=== PATIENT | male | born 1960 | race Caucasian/White ===

== ENCOUNTER 2017-03-17 21:19 | Inpatient (IN) | payer MEDICAID, OTHER ==
[~2017-03-17] VITALS: Ht 177.8 cm; Wt 82.1 kg
[~2017-03-17 21:19] MED LIST: ASPI-605 PO; CARV12.52 PO; CLOP75TA2 PO; D5W IV SCH; ISOS30TA6 PO; MILRINONE LACTATE IV SCH
--- NOTE | 2017-03-17 21:20 | NUR ---
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 and currently on milrinone IVPB YULIA PICC for recent bilateral leg sx for occluded arteries at [facility]. AOx4, afebrile, diaphoretic, facial grimacing w/ resp even & unlabored, denies sob, htn, SR w/ multiple PVC on continuous pulse-ox w/ cardiac monitoring. 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
--- NOTE | 2017-03-17 21:35 | NUR ---
EKG at bedside. Labs drawn & sent.
[2017-03-17 21:42] LABS: BASOPHILS # (AUTO) 0.1 /CMM (0.0-0.2); BASOPHILS % (AUTO) 0.7 % (0.0-2.0); EOSINOPHILS # (AUTO) 0.2 /CMM (0.0-0.7); EOSINOPHILS % (AUTO) 2.4 % (0.0-6.0); HEMATOCRIT 30 % (39-51); HEMOGLOBIN 10.3 g/dL (13.5-17.5); LYMPHOCYTES # (AUTO) 2.2 /CMM (0.8-4.8); LYMPHOCYTES % (AUTO) 28.8 % (20.0-44.0); MEAN CORPUSCULAR HEMOGLOBIN 29 PG (26.0-33.0); MEAN CORPUSCULAR HGB CONC 34 g/dl (31.0-36.0); MEAN CORPUSCULAR VOLUME 84 fL (80-96); MONOCYTES # (AUTO) 0.7 /CMM (0.1-1.30); MONOCYTES % (AUTO) 9.4 % (2.0-12.0); NEUTROPHILS # (AUTO) 4.6 /CMM (1.8-8.9); NEUTROPHILS % (AUTO) 58.7 % (43.0-81.0); PLATELET COUNT (AUTO) 359 /CMM (150-450); RDW COEFFICIENT OF VARIATION 14.9 (11.5-15.0); RED BLOOD CELL COUNT(AUTO) 3.63 MIL/uL (4.5-6.0); WHITE BLOOD COUNT (AUTO) 7.8 K/uL (4.3-11.0)
--- NOTE | 2017-03-17 21:47 | NUR ---
CXR at bedside.
[2017-03-17 21:53] LABS: CALCIUM, SERUM 9.4 mg/dL (8.5-10.1); CARBON DIOXIDE 29 mmol/L (21-32); CHLORIDE 96 mmol/L (98-107); CREATININE 1.1 mg/dL (0.6-1.3); GLUCOSE 269 mg/dL (74-106); POTASSIUM 3.3 mmol/L (3.5-5.1); SODIUM SERUM 134 mmol/L (136-145); UREA NITROGEN, BLOOD 27 mg/dL (7-18)
[2017-03-17] MEDS ORDERED: ONDANSETRON HCL/PF 4 MG/2 ML VIAL ONE ×2 (21:54→22:11)
[2017-03-17 21:55] LABS: PROTHROMBIN TIME 10.4 SECS (9.5-12.7)
[2017-03-17] MEDS ORDERED: MORPHINE SULFATE INJ 10 MG/ML DISP.SYRIN ONE ×2 (21:55→23:27)
[2017-03-17] MEDS ORDERED: ONDANSETRON HCL/PF 4 MG/2 ML VIAL IV ONE (22:00)
[2017-03-17] MEDS ORDERED: MORPHINE SULFATE INJ 2 MG/ML DISP.SYRIN IV ONE ×2 (22:00→23:30)
[2017-03-17 22:01] LABS: TROPONIN I < 0.017 ng/mL (0.00-0.056)
--- NOTE | 2017-03-17 22:04 | NUR ---
pt medicated as ordered for continued midsternal cp, on continuous cardiac monitoring.
[2017-03-17] MEDS ORDERED: IOHEXOL-350 100 ML VIAL IV ONE (22:21)
[2017-03-17] MEDS ORDERED: IV NS 0.9% 250 ML IV ONE (22:21)
[2017-03-17] MEDS ORDERED: CT SWABBABLE VALVE TRANS SET 1 EA INFUS.SET MC ONE (22:21)
--- NOTE | 2017-03-17 22:38 | NUR ---
pt sent to [place] via [facility].
--- NOTE | 2017-03-17 23:53 | NUR ---
Incoming call fr pt daughter, Alfreda [phone], per pt request, update pt daughter on pt status. Instruct pt daughter to bring list of home medications.
--- NOTE | 2017-03-17 23:56 | NUR ---
Carlos DIRECTOR ORACLE at bedside for further eval.
[2017-03-18] VITALS (17 sets, daily range): BP systolic 116–158; BP diastolic 46–82
[2017-03-18] MEDS ORDERED: MORPHINE SULFATE INJ 2 MG/ML DISP.SYRIN IV PRN (00:30)
[2017-03-18] MEDS ORDERED: ACETAMINOPHEN 325 MG TABLET PO PRN (00:30)
[2017-03-18] MEDS ORDERED: MISCELLANEOUS MED 1 EA EA XX ONE (00:30)
[2017-03-18] MEDS ORDERED: HYDROCODONE/APAP 5/325MG 1 EACH TABLET PO PRN (00:30)
[2017-03-18] MEDS ORDERED: ONDANSETRON HCL/PF 4 MG/2 ML VIAL IVP PRN (00:30)
[2017-03-18] MEDS ORDERED: POTASSIUM CHLORIDE 20 MEQ TAB.PRT.SR PO ONE ×2 (00:30→00:49)
[2017-03-18] MEDS ORDERED: MAGNESIUM HYDROXIDE 30 ML UDC PO PRN (00:30)
[2017-03-18] MEDS ORDERED: MAG HYDROX/AL HYDROX/SIMETH 30 ML UDC PO PRN (00:30)
[2017-03-18] MEDS ORDERED: ZOLPIDEM TARTRATE 5 MG TABLET PO PRN (00:30)
[2017-03-18] MEDS ORDERED: ZOLPIDEM TARTRATE 10 MG TABLET ONE (00:42)
[2017-03-18] MEDS ORDERED: DEXTROSE 50%-WATER 50 ML DISP.SYRIN IV PRN (01:00)
--- NOTE | 2017-03-18 01:24 | NUR ---
pt resting comfortably in bed w/ resp even & unlabored, on continuous pulse-ox w/ cardiac monitoring. Awaiting admission ICU.
--- NOTE | 2017-03-18 02:41 | NUR ---
pt continues to rest in bed w/ resp even & unlabored, nad noted.
[2017-03-18] MEDS ORDERED: MORPHINE SULFATE INJ 10 MG/ML DISP.SYRIN ONE ×2 (02:58→03:55)
--- NOTE | 2017-03-18 03:05 | NUR ---
pt awake, pulling off pulse-ox, c/o lt side cp, requesting for pain medication. Medicated as ordered for cp, on continuous cardiac monitoring.
[2017-03-18] MEDS ORDERED: ONDANSETRON HCL/PF 4 MG/2 ML VIAL ONE (03:12)
--- NOTE | 2017-03-18 03:56 | NUR ---
pt continues to have lt sided cp, unrelieved w/ medication, restless, sitting up in bed, pulling off monitoring equipment, requesting for more pain medication. Carlos Nguyen NP called, per verbal order received, stat EKG and give Morphine 4mg IVPx1 now. Pt placed back on cardiac monitoring and medicated as ordered.
--- NOTE | 2017-03-18 04:15 | NUR ---
STAT EKG DONE IN ER, CHARGE NURSE LUIS MANUEL NOTIFIED
[2017-03-18] MEDS ORDERED: MORPHINE SULFATE INJ 4 MG/ML DISP.SYRIN IV ONE (04:30)
--- NOTE | 2017-03-18 04:30 | NUR ---
pt report lt cp partially relieved w/ pain medication, placed on 2 l/min O2 via NC, on continuous pulse-ox w/ cardiac monitoring.
--- NOTE | 2017-03-18 05:20 | NUR ---
pt resting comfortably in bed w/ resp even & unlabored, nad noted. On continuous monitoring.
--- NOTE | 2017-03-18 06:48 | NUR ---
pt awake, lying in bed w/ resp even & unlabored, denies any cp at this time w/ nad noted. pt removed O2 and pulse-ox, on continuous cardiac monitoring.
--- NOTE | 2017-03-18 07:23 | NUR ---
Report given to ARMEN Green for RASHEED, pt admission to ICU 255.
[2017-03-18 07:27] LABS: BASOPHILS # (AUTO) 0.1 /CMM (0.0-0.2); BASOPHILS % (AUTO) 0.8 % (0.0-2.0); EOSINOPHILS # (AUTO) 0.3 /CMM (0.0-0.7); EOSINOPHILS % (AUTO) 4.7 % (0.0-6.0); HEMATOCRIT 30 % (39-51); HEMOGLOBIN 10.3 g/dL (13.5-17.5); LYMPHOCYTES # (AUTO) 2.3 /CMM (0.8-4.8); LYMPHOCYTES % (AUTO) 33.9 % (20.0-44.0); MEAN CORPUSCULAR HEMOGLOBIN 29 PG (26.0-33.0); MEAN CORPUSCULAR HGB CONC 34 g/dl (31.0-36.0); MEAN CORPUSCULAR VOLUME 84 fL (80-96); MONOCYTES # (AUTO) 0.7 /CMM (0.1-1.30); MONOCYTES % (AUTO) 10.7 % (2.0-12.0); NEUTROPHILS # (AUTO) 3.4 /CMM (1.8-8.9); NEUTROPHILS % (AUTO) 49.9 % (43.0-81.0); PLATELET COUNT (AUTO) 334 /CMM (150-450); RDW COEFFICIENT OF VARIATION 15.4 (11.5-15.0); RED BLOOD CELL COUNT(AUTO) 3.57 MIL/uL (4.5-6.0); WHITE BLOOD COUNT (AUTO) 6.8 K/uL (4.3-11.0)
--- NOTE | 2017-03-18 07:30 | NUR ---
ICU/RN: RECEIVED REPORT FROM FERRYBOAT HELPER ZORA. PT BROUGHT TO ROOM 255 VIA GURNEY. PT ALERT, AWAKE, ORIENTED, FOLLOWS COMMANDS. PT ON NASAL CANULA, NO ACUTE DISTRESS NOTED, EVEN AND UNLABORED RESPIRATIONS. PT ON TELE, SINUS. PACEMAKER IN PLACE, DUAL CHAMBER. RIGHT UPPER ARM PICC LINE IN PLACE, NO S/S OF INFECTION OR INFILTRATION NOTED. PT ON CONTINUOUS MILRINONE DRIP 0.25 MCG/KILO/MINUTE WHICH HE CAME HERE WITH FROM HOME. WILL BRING REST OF HIS HOME MEDICATIONS TO COMPLETE MED RECON. SKIN INTACT, PT ABLE TO AMBULATE WITH CANE, INSTRUCTED TO STAY IN BED AND CALL FOR HELP WHEN NEEDED. ALL NEEDS WILL BE MET, SAFETY MEASURES TAKEN, BED IN LOW POSITION, SIDE RAILS UP, CALL LIGHT WITHIN REACH.
[2017-03-18 07:49] LABS: CALCIUM, SERUM 9.2 mg/dL (8.5-10.1); CREATININE 0.8 mg/dL (0.6-1.3); MAGNESIUM 1.9 mg/dL (1.8-2.4); PHOSPHORUS 3.7 mg/dL (2.5-4.9); POTASSIUM 3.6 mmol/L (3.5-5.1); TROPONIN I 0.018 ng/mL (0.00-0.056)
[2017-03-18 07:52] LABS: THYROID STIMULATING HORMONE 2.855 uIU/mL (0.358-3.74)
[2017-03-18] MEDS: BLOOD SUGAR DIAGNOSTIC 1 EACH STRIP IN SCH ×4 (07:52→21:11)
[2017-03-18] MEDS: CLOPIDOGREL BISULFATE 75 MG TABLET PO SCH (08:57)
[2017-03-18] MEDS: ASPIRIN 81 MG TAB.CHEW PO SCH (08:57)
[2017-03-18] MEDS: ENOXAPARIN SODIUM 40 MG/0.4 ML DISP.SYRIN SQ SCH (08:57)
[2017-03-18] MEDS: INSULIN REGULAR, HUMAN 100 UNIT/ML 3 ML VIAL SQ PRN ×4 (08:58→21:14)
[2017-03-18] MEDS ORDERED: RANO500T3 PO (09:52)
[2017-03-18] MEDS ORDERED: INSU100V27 SQ (09:52)
[2017-03-18] MEDS ORDERED: INSU3INS6 SQ (09:52)
[2017-03-18] MEDS ORDERED: BUME1TAB4 PO (09:52)
[2017-03-18] MEDS ORDERED: VALS80TA2 PO (09:52)
[2017-03-18] MEDS ORDERED: SENN8.6T6 PO (09:52)
[2017-03-18] MEDS ORDERED: ROSU20TA PO (09:52)
[2017-03-18] MEDS ORDERED: CYAN10009 PO (09:52)
[2017-03-18] MEDS ORDERED: ISOS120T9 PO (09:52)
[2017-03-18] MEDS ORDERED: TAMS0.4C34 PO (09:52)
[2017-03-18] MEDS ORDERED: FERR-58 PO (09:52)
[2017-03-18] MEDS ORDERED: DULO30CA51 PO (09:52)
[2017-03-18] MEDS ORDERED: LIDO700A TP (09:52)
[2017-03-18] MEDS ORDERED: MAGN400T6 PO (09:52)
[2017-03-18] MEDS ORDERED: GABA-536 PO (09:52)
[2017-03-18] MEDS ORDERED: DOCU-170 PO (09:52)
[2017-03-18] MEDS ORDERED: ONDA4TAB11 PO (09:52)
[2017-03-18] MEDS ORDERED: CARV25TA2 PO (09:52)
[2017-03-18] MEDS ORDERED: MILRINONE IV PRN (10:30)
--- NOTE | 2017-03-18 10:30 | NUR ---
ICU/RN: PER TRADING SPECIALIST REPORT AND PER PT AWAITING FOR OR DAUGHTER OF PATIENT TO COME TO BRING ALL HOME MEDICATIONS AND TO GIVE US MORE PRECISE HISTORY REGARDING PT. PT IS HAVING HARD TIME REMEMBERING 'S PHONE NUMBER, NUMBER ON FACE SHEET IS NOT WORKING. WILL REATTEMPT TO CALL OR WAIT FOR THEM TO COME AND VISIT HIM.
--- NOTE | 2017-03-18 15:00 | NUR ---
ICU/RN MD ROUNDS PT SEEN AND ASSESSED BY . PT ASSESSED, CHART REVIEWED. INFORMED HER WE ARE WAITING FOR FAMILY TO BRING REPORTS. ECHO DONE, INFORMED MD OF TROPONIN TRENDS. EKG UNREMARKABLE.
--- NOTE | 2017-03-18 18:08 | NUR ---
ICU/RN: TRIED CALLING AGAIN WITH NUMBER PROVIDED BY PT, WRONG NUMBER
--- NOTE | 2017-03-18 18:52 | NUR ---
ICU/RN ENDING NOTES,AM REPORT WILL BE ENDORSED TO NIGHT NURSE FOR CONTINUATION OF CARE. ALL NEEDS MET. SAFETY MEASURES TAKEN. AWAITING FOR FAMILY TO COME AND BRING HOME MEDS AND PROVIDE ACCURATE HISTORY. BED IN LOW POSITION, SIDE RAILS UP, CALL LIGHT WITHIN REACH.
--- NOTE | 2017-03-18 20:38 | NUR ---
received pt from day shift, a/o x4, follows commands, SR, A pacing, occasional PVCs, receiving Primacor at 0.25mcg, on 2L 02 sat well, lungs clear, no edema, tolerates diet, urinates in urinal, v/s stable, no pain, pt turns and repositions by himself.
[2017-03-19] VITALS (12 sets, daily range): BP systolic 121–144; BP diastolic 33–75
--- NOTE | 2017-03-19 00:35 | NUR ---
pt is resting in the bed, v/s stable, no pain.
--- NOTE | 2017-03-19 04:51 | NUR ---
pt is resting in the bed, no acute distress overnight, v/s stable, no chest pain verbalized, pt cleaned and changed.
[2017-03-19 05:12] LABS: BASOPHILS # (AUTO) 0.1 /CMM (0.0-0.2); BASOPHILS % (AUTO) 0.8 % (0.0-2.0); EOSINOPHILS # (AUTO) 0.3 /CMM (0.0-0.7); EOSINOPHILS % (AUTO) 4.4 % (0.0-6.0); HEMATOCRIT 31 % (39-51); HEMOGLOBIN 10.4 g/dL (13.5-17.5); LYMPHOCYTES # (AUTO) 1.8 /CMM (0.8-4.8); LYMPHOCYTES % (AUTO) 27.2 % (20.0-44.0); MEAN CORPUSCULAR HEMOGLOBIN 29 PG (26.0-33.0); MEAN CORPUSCULAR HGB CONC 34 g/dl (31.0-36.0); MEAN CORPUSCULAR VOLUME 85 fL (80-96); MONOCYTES # (AUTO) 0.5 /CMM (0.1-1.30); NEUTROPHILS % (AUTO) 59.6 % (43.0-81.0); PLATELET COUNT (AUTO) 308 /CMM (150-450); RDW COEFFICIENT OF VARIATION 15.9 (11.5-15.0); WHITE BLOOD COUNT (AUTO) 6.8 K/uL (4.3-11.0)
[2017-03-19 05:35] LABS: TROPONIN I < 0.017 ng/mL (0.00-0.056)
[2017-03-19 05:39] LABS: ALANINE AMINOTRANSFERASE 30 U/L (12-78); ALBUMIN 3.2 g/dL (3.4-5.0); ALKALINE PHOSPHATASE 71 U/L (46-116); ASPARTATE AMINOTRANSFERASE 17 U/L (15-37); BILIRUBIN,TOTAL 0.3 mg/dL (0.2-1.0); CALCIUM, SERUM 9.5 mg/dL (8.5-10.1); CARBON DIOXIDE 30 mmol/L (21-32); CHLORIDE 101 mmol/L (98-107); CREATININE 0.8 mg/dL (0.6-1.3); GLUCOSE 149 mg/dL (74-106); PHOSPHORUS 4.1 mg/dL (2.5-4.9); POTASSIUM 3.7 mmol/L (3.5-5.1); SODIUM SERUM 138 mmol/L (136-145); TOTAL PROTEIN, SERUM 7.3 g/dL (6.4-8.2); UREA NITROGEN, BLOOD 17 mg/dL (7-18)
--- NOTE | 2017-03-19 07:30 | NUR ---
ICU/RN: MD ROUNDS; PT SEEN BY . PER MD HE IS STABLE TO BE DISCHARGED. INSTRUCTED TO FOLLOWUP WITH PRIMARY. AWAITING FOR INTERNAL MEDICINE TO PROCEED WITH THE DISCHARGE
--- NOTE | 2017-03-19 08:00 | NUR ---
ICU/RN INITIAL NOTES,AM RECEIVED REPORT FROM NIGHT NURSE. PT ALERT,AWAKE ORIENTED TO PERSON, PLACE AND TIME. PT ON ROOM AIR, NO DISTRESS, MAINTAINING 02 SAT >95%. NO CHEST PAIN OVER NIGHT AND NO CHEST PAIN AT THIS TIME. PICC LINE PRESENT, PATIENT CAME IN WITH IT, NO S/S OF INFECTION OR INFILTRATION NOTED. IV MILRINONE INFUSING ORDERED VIA PUMP PT CAME IN WITH. ALL NEEDS WILL BE MET, SAFETY MEASURES TAKEN, BED IN LOW POSITION, SIDE RIALS UP, CALL LIGHT WITHIN REACH.
[2017-03-19] MEDS: BLOOD SUGAR DIAGNOSTIC 1 EACH STRIP IN SCH (08:02)
[2017-03-19] MEDS: INSULIN REGULAR, HUMAN 100 UNIT/ML 3 ML VIAL SQ PRN (08:05)
[2017-03-19] MEDS: CLOPIDOGREL BISULFATE 75 MG TABLET PO SCH (08:06)
[2017-03-19] MEDS: ASPIRIN 81 MG TAB.CHEW PO SCH (08:06)
[2017-03-19] MEDS: ENOXAPARIN SODIUM 40 MG/0.4 ML DISP.SYRIN SQ SCH (08:06)
--- NOTE | 2017-03-19 09:20 | NUR ---
ICU/RN: FINALLY AFTER A LOT OF INVESTIGATION FOUND THE CONTACT OF AND DAUGHTER. ALEC DAUGHTER SAID SHE WILL BE IN TO VISIT SHORTLY.
--- NOTE | 2017-03-19 10:00 | NUR ---
ICU/RN: PT REFUSING ALL VITAL SIGNS, TAKING OFF AND PULLING OFF ALL LEADS AND BP CUFF.
--- NOTE | 2017-03-19 11:00 | NUR ---
ICU/RN: PT SEEN AND ASSESSED BY . DISCHARGE ORDERS RECEIVED. WILL FOLLOW THROUGH.
--- NOTE | 2017-03-19 11:43 | NUR ---
ICU/RN: DISCHARGE NOTE EXIT CARE AND DISCHARGE COMPLETED. SKIN INTACT, NO PHOTOS TAKEN. PT CAME IN WITH PICC LINE THEREFORE PER MD WE DISCHARGED WITH PICC LINE AND MILRINONE, IV MEDICATION. ALL BELONGINGS SENT HOME WITH PT, FORM SIGNED. DAUGHTER OF PT HERE TO TAKE HIM HOME. ALL FORMS AND RECORDS GIVEN TO PT. PT ESCORTED OUT TO VEHICLE.
== END 2017-03-19 11:30 | disposition home or self-care (01) | DRG 203 ==
LOC: ER 21:22 → TELE 22:53 → ICU 03-18 06:06
PROVIDERS: ADMIT Nurse Practitioner Acute Care; ATTEND Nurse Practitioner Acute Care
DX: M94.0 Chondrocostal junction syndrome [Tietze] (principal); I50.23 Acute on chronic systolic (congestive) heart failure; Z76.82 Awaiting organ transplant status; E11.51 Type 2 diabetes mellitus with diabetic peripheral angiopathy without gangrene; I25.10 Atherosclerotic heart disease of native coronary artery without angina pectoris; I11.0 Hypertensive heart disease with heart failure; I27.20 Pulmonary hypertension, unspecified; E78.5 Hyperlipidemia, unspecified; D64.9 Anemia, unspecified; E87.6 Hypokalemia; I25.5 Ischemic cardiomyopathy; Z86.73 Personal history of transient ischemic attack (TIA), and cerebral infarction without residual deficits; Z87.891 Personal history of nicotine dependence; Z95.5 Presence of coronary angioplasty implant and graft; Z95.810 Presence of automatic (implantable) cardiac defibrillator; Z79.4 Long term (current) use of insulin
CPT/HCPCS: 36415; 71010-TC; 80048-TC; 80053-TC; 80061-TC; 82728-TC; 82962-TC; 83540-TC; 83735-TC; 84100-TC; 84439-TC; 84443-TC; 84484-TC; 85025-TC; 85730-TC; 87081-TC; 93307-TC; A4606; J1650; J1815; J2260; J2270; J2405; J7050; J7060; Q9967; Z7610

== ENCOUNTER 2017-03-27 11:50 | Inpatient (IN) | payer MEDICAID, OTHER ==
[~2017-03-27] VITALS: Ht 167.6 cm; Wt 85.3 kg
[~2017-03-27 11:50] MED LIST changes: +BUME1TAB4 PO; -CARV12.52 PO; +CARV25TA2 PO; +CYAN10009 PO; -D5W IV SCH; +DOCU-170 PO; +DULO30CA51 PO; +FERR-58 PO; +GABA-536 PO; +INSU100V27 SQ; +INSU3INS6 SQ; +ISOS120T9 PO; -ISOS30TA6 PO; +LIDO700A TP; +MAGN400T6 PO; -MILRINONE LACTATE IV SCH; +ONDA4TAB11 PO; +RANO500T3 PO; +ROSU20TA PO; +SENN8.6T6 PO; +TAMS0.4C34 PO; +VALS80TA2 PO
--- NOTE | 2017-03-27 11:50 | NUR ---
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 PT'S RUE PICC LINE HAD COME OUT AND PT IS ON MILRINONE VIA IV FOR HIS HEART. PT IS ON THE MONITOR AND CONTINUOUS PULSE OX. PT IS PALE IN [place]. RESP ARE 24. DR. LAU IS AT THE BEDSIDE.
[2017-03-27] MEDS ORDERED: NITROGLYCERIN PACKET 1 GM PACKET TD ONE (12:00)
[2017-03-27] MEDS ORDERED: ASPIRIN 81 MG TAB.CHEW PO ONE (12:00)
--- NOTE | 2017-03-27 12:01 | NUR ---
CALLED NURSING SUP. FOR TELE BED
[2017-03-27 12:10] LABS: BASOPHILS % (AUTO) 0.3 % (0.0-2.0); EOSINOPHILS # (AUTO) 0.1 /CMM (0.0-0.7); EOSINOPHILS % (AUTO) 1.7 % (0.0-6.0); HEMATOCRIT 34 % (39-51); HEMOGLOBIN 11.5 g/dL (13.5-17.5); LYMPHOCYTES # (AUTO) 1.2 /CMM (0.8-4.8); LYMPHOCYTES % (AUTO) 15.7 % (20.0-44.0); MEAN CORPUSCULAR HEMOGLOBIN 29 PG (26.0-33.0); MEAN CORPUSCULAR HGB CONC 33 g/dl (31.0-36.0); MEAN CORPUSCULAR VOLUME 87 fL (80-96); MONOCYTES # (AUTO) 0.6 /CMM (0.1-1.30); MONOCYTES % (AUTO) 7.7 % (2.0-12.0); NEUTROPHILS # (AUTO) 5.5 /CMM (1.8-8.9); NEUTROPHILS % (AUTO) 74.6 % (43.0-81.0); PLATELET COUNT (AUTO) 189 /CMM (150-450); RDW COEFFICIENT OF VARIATION 15.9 (11.5-15.0); RED BLOOD CELL COUNT(AUTO) 3.95 MIL/uL (4.5-6.0); WHITE BLOOD COUNT (AUTO) 7.4 K/uL (4.3-11.0)
[2017-03-27] MEDS ORDERED: ASPIRIN 81 MG TAB.CHEW ONE (12:12)
[2017-03-27] MEDS ORDERED: NITROGLYCERIN PACKET 1 GM PACKET ONE (12:12)
[2017-03-27] MEDS ORDERED: UBID50TA3 PO (12:17)
[2017-03-27] MEDS ORDERED: ESCI10TA PO (12:17)
[2017-03-27 12:24] LABS: INR 0.95 (0.87-1.13); PROTHROMBIN TIME 9.9 SECS (9.5-12.7)
[2017-03-27 12:28] LABS: TROPONIN I < 0.017 ng/mL (0.00-0.056)
[2017-03-27 12:33] LABS: ALANINE AMINOTRANSFERASE 22 U/L (12-78); ALBUMIN 3.6 g/dL (3.4-5.0); ALKALINE PHOSPHATASE 84 U/L (46-116); ASPARTATE AMINOTRANSFERASE 16 U/L (15-37); B-TYPE NATRIURETIC PEPTIDE 1337 PG/ML (0-125); BILIRUBIN,DIRECT 0.1 mg/dL (0.0-0.2); BILIRUBIN,TOTAL 0.5 mg/dL (0.2-1.0); CALCIUM, SERUM 9.2 mg/dL (8.5-10.1); CARBON DIOXIDE 26 mmol/L (21-32); CHLORIDE 102 mmol/L (98-107); CREATININE 1.2 mg/dL (0.6-1.3); SODIUM SERUM 136 mmol/L (136-145); TOTAL PROTEIN, SERUM 7.8 g/dL (6.4-8.2); UREA NITROGEN, BLOOD 17 mg/dL (7-18)
[2017-03-27 12:36] LABS: GLUCOSE 476 mg/dL (74-106)
--- NOTE | 2017-03-27 12:44 | NUR ---
PT REC'D A CUP OF WATER.
--- NOTE | 2017-03-27 12:44 | NUR ---
PT'S ARRIVED AND IS AT THE BEDSIDE.
[2017-03-27] MEDS ORDERED: ONDANSETRON HCL/PF 4 MG/2 ML VIAL ONE (12:47)
[2017-03-27] MEDS ORDERED: MORPHINE SULFATE INJ 10 MG/ML DISP.SYRIN ONE (12:49)
[2017-03-27] MEDS ORDERED: MORPHINE SULFATE INJ 2 MG/ML DISP.SYRIN IV ONE (13:00)
[2017-03-27] MEDS ORDERED: ONDANSETRON HCL/PF 4 MG/2 ML VIAL IVP ONE (13:00)
--- NOTE | 2017-03-27 13:27 | NUR ---
ALLSION [phone] ()- WOLOF AND BURMESE SPEAKING.
--- NOTE | 2017-03-27 13:37 | NUR ---
PAGED DR GUZMAN
--- NOTE | 2017-03-27 13:44 | NUR ---
PT GOING TO TELE 306-1
--- NOTE | 2017-03-27 14:10 | NUR ---
REPORT GIVEN TO ARMEN RITTER
--- NOTE | 2017-03-27 14:20 | NUR ---
RN NOTES RECEIVED PATIENT FROM ER VIA GURNEY, ABLE TO WALK TO BED ASSISTED WITH BELONGINGS. RESPIRATIONS EVEN AND UNLABORED, ON RA OXYGEN SATURATION AT 99%. PATIENT COMPLAINS OF CHEST PAIN, DESCRIBED CONSTANT PRESSURE, PT GIVEN MORPHINE AND ASA AND NITRO PATCH WITH SLIGHT RELIEF. YULIA PICC LINE NOTED, PULLED OUT, DID NOT FLUSH PER MD NEEDS REINSERTION. R HAND IV SITE PATENT AND INTACT NO REDNESS OR INFILTRATION NOTED, REFUSED BODY CHECK STATES JUST WANTS TO REST, NURSING EDUCATION REINFORCED. ORIENTED TO ROOM AND UNIT, CALL LIGHT WITHIN EASY REACH WILL CONTINUE TO MONITOR
[2017-03-27] MEDS ORDERED: DEXTROSE 50%-WATER 50 ML DISP.SYRIN IV PRN (14:30)
[2017-03-27] MEDS ORDERED: *INSULIN REGULAR(HUMULIN R)HUM 100 UNIT/ML VIAL SQ PRN (14:30)
[2017-03-27] MEDS ORDERED: HYDROCODONE/APAP 5/325MG 1 EACH TABLET PO PRN (14:30)
[2017-03-27] MEDS ORDERED: ONDANSETRON HCL/PF 4 MG/2 ML VIAL IVP PRN (14:30)
[2017-03-27] MEDS ORDERED: MAG HYDROX/AL HYDROX/SIMETH 30 ML UDC PO PRN (14:30)
[2017-03-27] MEDS ORDERED: Z GUARD REMEDY 2 OZ OINT TP PRN (14:30)
[2017-03-27] MEDS ORDERED: ENOXAPARIN SODIUM 40 MG/0.4 ML DISP.SYRIN SQ SCH (14:30)
[2017-03-27] MEDS ORDERED: ONDANSETRON 4 MG TAB.RAPDIS PO PRN (14:30)
[2017-03-27] MEDS ORDERED: ACETAMINOPHEN 325 MG TABLET PO PRN (14:30)
[2017-03-27] MEDS ORDERED: MAGNESIUM HYDROXIDE 30 ML UDC PO PRN (14:30)
[2017-03-27] MEDS ORDERED: INSULIN REGULAR, HUMAN 100 UNIT/ML 3 ML VIAL SQ PRN (14:30)
[2017-03-27 14:45] VITALS: BP 134/75
--- NOTE | 2017-03-27 15:29 | NUR ---
RN NOTES SEEN AND EXAMINED BY DR. GUZMAN, NOTIFIED MD OF CONTINUOUS MILRINONE FROM HOME PT STATES HE IS ON THE LIST FOR HEART TRANSPLANT BUT UNABLE TO REPORT WHY, PT NOTED POOR HISTORIAN PER MD PT TO CONTINUE DRIP AND BE TRANSFERRED TO ICU AT THIS TIME
[2017-03-27 15:52] LABS: CHOLESTEROL 176 mg/dL (<200); HDL CHOLESTEROL 46 mg/dL (40-60); LDL 106 mg/dL (0-99); TRIGLYCERIDES 171 mg/dL (30-150)
--- NOTE | 2017-03-27 16:10 | NUR ---
RN NOTES PATIENT AWAITING BED FOR ICU TRANSFER, WILL CONTINUE TO MONITOR AT THIS TIME
--- NOTE | 2017-03-27 16:12 | NUR ---
RN NOTES PICC LINE REMOVED PER MD ORDERS,TOLERATED WELL NO ASE NOTED TO CONTINUE TO MONITOR PT TO HAVE PICC LINE REINSERTED
--- NOTE | 2017-03-27 16:14 | NUR ---
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
[2017-03-27] MEDS ORDERED: MORPHINE SULFATE INJ 2 MG/ML DISP.SYRIN IV PRN (16:30)
[2017-03-27] MEDS ORDERED: HYDROMORPHONE 1 MG/1 ML DISP.SYRIN IV PRN (16:30)
[2017-03-27] MEDS ORDERED: BUMETANIDE INJ 0.25 MG/ML VIAL IV SCH (16:30)
[2017-03-27] MEDS ORDERED: FERROUS SULFATE (325 MG) 325 MG/TAB TABLET PO SCH (17:00)
[2017-03-27] MEDS ORDERED: DOCUSATE SODIUM 100 MG CAPSULE PO SCH (17:00)
[2017-03-27] MEDS ORDERED: GABAPENTIN 400 MG CAPSULE PO SCH (17:00)
[2017-03-27] MEDS ORDERED: BUMETANIDE (1 MG) 1 MG TABLET PO SCH (17:00)
--- NOTE | 2017-03-27 17:05 | NUR ---
RN NOTES PATIENT STATING AT THIS TIME " I WANT TO GO HOME NOW, I WILL CALL MY SO SHE CAN TAKE ME" PATIENT ALERT AND ORIENTED AND ABLE TO MAKE NEEDS KNOWN, NAURUAN SPEAKING NURSE ASSISTED IN TRANSLATING PT IS TO SEE PRIMARY CARE PHYSICIAN SOON POSSIBLE WILL MAKE MD AWARE. PT WITH RESPIRATIONS EVEN AND UNLABORED, VS WNL NO DISTRESS NOTED, SIGNED AGAINST MEDICAL ADVICE PAPER WORK PATIENT INSISTED ON LEAVING TO WAIT FOR IN LOBBY, DISCHARGED AGAINST MEDICAL ADVICE
[2017-03-27] MEDS ORDERED: BLOOD SUGAR DIAGNOSTIC 1 EACH STRIP VI SCH (17:30)
[2017-03-27] MEDS ORDERED: NITROGLYCERIN 30 GM TUBE TP SCH (21:00)
[2017-03-27] MEDS ORDERED: NITROGLYCERIN PACKET 1 GM PACKET TOP SCH (21:00)
[2017-03-27] MEDS ORDERED: VALSARTAN 80 MG TABLET PO SCH (21:00)
[2017-03-27] MEDS ORDERED: ZOLPIDEM TARTRATE 5 MG TABLET PO PRN (22:00)
[2017-03-27] MEDS ORDERED: SENNOSIDES 8.6 MG TABLET PO SCH (22:00)
[2017-03-28] MEDS ORDERED: ESCITALOPRAM OXALATE (10 MG) 10 MG TABLET PO SCH (09:00)
[2017-03-28] MEDS ORDERED: MAGNESIUM OXIDE 400 MG TABLET PO SCH (09:00)
[2017-03-28] MEDS ORDERED: CLOPIDOGREL BISULFATE 75 MG TABLET PO SCH (09:00)
[2017-03-28] MEDS ORDERED: TAMSULOSIN 0.4 MG CAP.SR.24H PO SCH (09:00)
[2017-03-28] MEDS ORDERED: LIDOCAINE 5% (PATCH) 1 EA PATCH TP SCH (09:00)
[2017-03-28] MEDS ORDERED: ASPIRIN EC 81 MG TABLET.DR PO SCH (09:00)
[2017-03-28] MEDS ORDERED: DULOXETINE HCL 30 MG CAPSULE.DR PO SCH (09:00)
== END 2017-03-27 17:28 | disposition left against medical advice (07) | DRG 194 ==
LOC: ER 11:51 → TELE 13:47
PROVIDERS: ADMIT Internal Medicine; ATTEND Internal Medicine
DX: I11.0 Hypertensive heart disease with heart failure (principal); E11.00 Type 2 diabetes mellitus with hyperosmolarity without nonketotic hyperglycemic-hyperosmolar coma (NKHHC); Z76.82 Awaiting organ transplant status; Z95.1 Presence of aortocoronary bypass graft; D63.8 Anemia in other chronic diseases classified elsewhere; I50.23 Acute on chronic systolic (congestive) heart failure; E11.65 Type 2 diabetes mellitus with hyperglycemia; E78.5 Hyperlipidemia, unspecified; F32.9 Major depressive disorder, single episode, unspecified; F41.9 Anxiety disorder, unspecified; I25.10 Atherosclerotic heart disease of native coronary artery without angina pectoris; I50.84 End stage heart failure; N40.0 Benign prostatic hyperplasia without lower urinary tract symptoms; Z79.4 Long term (current) use of insulin; Z86.73 Personal history of transient ischemic attack (TIA), and cerebral infarction without residual deficits; R07.9 Chest pain, unspecified; Z79.899 Other long term (current) drug therapy; Z95.810 Presence of automatic (implantable) cardiac defibrillator
CPT/HCPCS: 36415; 71010-TC; 80048-TC; 80061-TC; 80076-TC; 83880; 84484-TC; 85025-TC; 85730-TC; 87081-TC; J1650; J1815; J2270; J2405

== ENCOUNTER 2018-10-19 13:06 | Emergency (ER) | payer MEDICAID, OTHER ==
[~2018-10-19] VITALS: Ht 167.6 cm; Wt 85.3 kg
[~2018-10-19 13:06] MED LIST changes: -BUME1TAB4 PO; +CLOP75TA15 PO; -CLOP75TA2 PO; -DOCU-170 PO; +DOCU100C36 PO; +ESCI10TA PO; -FERR-58 PO; +FERR325T23 PO; +ISOS120T13 PO; -ISOS120T9 PO; -ROSU20TA PO; +ROSU20TA2 PO; +SENN-168 PO; -SENN8.6T6 PO; +UBID50TA3 PO
--- NOTE | 2018-10-19 13:13 | NUR ---
[id number], FROM HOME, PT IS ON HOSPICE, C/O SOB 98% ON 02 @ 2LPM VIA NC. PATIENT A/OX2-3, DYSPNEA, KEPT COMFORTABLE, PLACED ON THE MONITOR.
--- NOTE | 2018-10-19 13:30 | NUR ---
PATIENT SPOKE WITH DR. JOHNSON, PATIENT DECIDED TO STAY AND ACCEPT MEDICAL TREATMENT.
--- NOTE | 2018-10-19 13:34 | NUR ---
RECEIVED A CALL FROM DAUGHTER ALEC , SHE STATED SHE IS THE DPOA, AND WILL PROVIDE THE PAPERWORK TONIGHT. PER DAUGHTER, SHE WANTS TO HAVE HER FATHER TO RECEIVE MEDICAL TREATMENT AT THIS TIME.
[2018-10-19 13:59] LABS: BASOPHILS # (AUTO) 0.1 /CMM (0.0-0.2); BASOPHILS % (AUTO) 1.3 % (0.0-2.0); EOSINOPHILS % (AUTO) 2.6 % (0.0-6.0); HEMATOCRIT 36 % (39-51); HEMOGLOBIN 12.3 g/dL (13.5-17.5); LYMPHOCYTES # (AUTO) 1.7 /CMM (0.8-4.8); LYMPHOCYTES % (AUTO) 25.5 % (20.0-44.0); MEAN CORPUSCULAR HGB CONC 34 g/dl (31.0-36.0); MEAN CORPUSCULAR VOLUME 87 fL (80-96); MONOCYTES # (AUTO) 0.7 /CMM (0.1-1.30); NEUTROPHILS % (AUTO) 60.6 % (43.0-81.0); PLATELET COUNT (AUTO) 199 /CMM (150-450); RED BLOOD CELL COUNT(AUTO) 4.15 MIL/uL (4.5-6.0); WHITE BLOOD COUNT (AUTO) 6.6 K/uL (4.3-11.0)
[2018-10-19 14:12] LABS: CALCIUM, SERUM 8.7 mg/dL (8.5-10.1); POTASSIUM 3.2 mmol/L (3.5-5.1)
--- NOTE | 2018-10-19 14:20 | NUR ---
PATIENT REFUSED TO HAVE ABG DRAWN BY RT, EXPLAINED RISKS AND BENEFITS, PATIENT STILL REFUSED. DR. JOHNSON MADE AWARE.
[2018-10-19 14:26] LABS: ALBUMIN 3.7 g/dL (3.4-5.0); BILIRUBIN,DIRECT 0.1 mg/dL (0.0-0.2); BILIRUBIN,TOTAL 0.4 mg/dL (0.2-1.0); TOTAL PROTEIN, SERUM 7.7 g/dL (6.4-8.2)
[2018-10-19] MEDS ORDERED: POTASSIUM CHLORIDE 20 MEQ TAB.PRT.SR PO ONE ×2 (15:23→15:30)
--- NOTE | 2018-10-19 15:30 | NUR ---
PIV removed, patient discharged to home in stable condition. Written and verbal after care instructions given. Patient verbalizes understanding of instruction.
[2018-10-19 15:31] VITALS: BP 121/62
== END 2018-10-19 15:32 | disposition home or self-care (01) ==
LOC: ER 13:08
DX: R06.00 Dyspnea, unspecified (principal); I11.0 Hypertensive heart disease with heart failure; I50.9 Heart failure, unspecified; E87.6 Hypokalemia; E11.9 Type 2 diabetes mellitus without complications; Z86.73 Personal history of transient ischemic attack (TIA), and cerebral infarction without residual deficits; Z95.818 Presence of other cardiac implants and grafts; Z79.82 Long term (current) use of aspirin; Z79.899 Other long term (current) drug therapy
CPT/HCPCS: 36415; 71045-TC; 80048-TC; 80076-TC; 83605-TC; 83880; 84484-TC; 85025-TC; 85730-TC; 87040-TC